=== PATIENT | male | born 1975 | race Caucasian/White ===

== ENCOUNTER 2017-09-26 00:50 | Emergency (ER) | payer SELFPAY ==
[2017-09-26] MEDS ORDERED: Lidocaine 2% 20ml Vial ONE (01:54)
[2017-09-26] MEDS ORDERED: TRIPLE ANTIBIOTIC OINTMENT PAC 1 PACKET TOP ONE (04:00)
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
[2017-09-26] MEDS ORDERED: SODIUM CHLORIDE IRRIG SOLUTION 1,000 ML IR ONE (05:03)
[2017-09-26] MEDS ORDERED: cefTRIAXone SODIUM 1 GM VIAL IM ONE (05:03)
[2017-09-26] MEDS ORDERED: Lidocaine 2% 20ml Vial IP ONE (05:03)
[2017-09-26] MEDS ORDERED: Lidocaine 1% 5ml(IM or SUTURE)(PAIN CLINIC) IJ ONE (05:03)
[2017-09-26 05:23] VITALS: BP 102/73
--- NOTE | 2017-09-26 06:08 | Diagnostic Imaging Report ---
ISABEL YEUNG [facility] [address] [facility] [address] 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 A foreign body is identified measuring about 2.3 cm overlying the base of the 5th digit. A 2nd foreign body measures 9 mm. No underlying fracture is identified. There is no true the PA radiograph Impression: Foreign bodies in the medial dorsal hand No bone abnormality identified. Limited examination due to positioning and flexion of the fingers Electronically signed on Sep 26, 2017 1:30:06 AM TELEVISION INSTALLER HELPER by: Gary SOL
== END 2017-09-26 04:10 | disposition home or self-care (01) ==
LOC: ED 00:50
DX: S61.411A Laceration without foreign body of right hand, initial encounter (principal); X58.XXXA Exposure to other specified factors, initial encounter; Y93.9 Activity, unspecified; Y99.9 Unspecified external cause status
CPT/HCPCS: 73130; J0696; 12004; 96372; 99283